=== PATIENT | female | born 1970 | race Caucasian/White ===

== ENCOUNTER 2018-11-11 16:32 | Inpatient (IN) ==
[2018-11-11] MEDS ORDERED: MetroNIDAZOLE 500 MG/100 ML 500 MG/100 ML BAG IVPB ONE (16:44)
[2018-11-11] MEDS ORDERED: cefTRIAXone 1,000 MG in Water for inj. (sterile) 20 ML 10 ML IVP ONE (16:46)
[2018-11-11 17:15] LABS: Basophils % 0.2 %; Eosinophils % 0.2 %; Hematocrit 40.4 % (35.3-44.9); Hemoglobin 12.9 g/dL (11.5-15.4); Immature Granulocytes % 0.4 % (0-4); Lymphocytes # 2.4 K/mcL (0.6-4.6); Lymphocytes % 12.6 %; Mean Corpuscular HGB Conc 31.9 g/dL (31.6-35.5); Mean Corpuscular Hemoglobin 28.1 pg (28.0-33.3); Mean Platelet Volume 11.8 fL (9.4-12.4); Monocytes # 1.3 K/mcL (0.0-1.3); Monocytes % 7.1 %; Neutrophils # 14.8 K/mcL (1.6-8.9); Platelet Count 254 K/mcL (140-400); Red Blood Count 4.59 M/mcL (3.82-4.97); Red Cell Distribution Width 17.2 % (11.5-14.5); Segmented Neutrophils % 79.5 %
[2018-11-11 17:22] LABS: INR 1.2; Prothrombin Time 13.8 Seconds (9.4-12.1)
[2018-11-11] MEDS ORDERED: 0.9 % Sodium Chloride 1,000 ML IVC ONE (17:22)
--- NOTE | 2018-11-11 17:22 | Acute Care Surgery H&P ---
<Kinjal Leary N - Last Filed: 11/11/18 17:39> Date of Encounter: 11/11/18 Time of Encounter: 17:21 Assessment and Plan (1) Abdominal pain Current Visit: Yes Status: Acute 48-year-old female with one-day history of right lower quadrant abdominal pain with CT oral contrast findings concerning for inflammatory changes along the terminal ileum and appendix. Differential includes, but is not limited to, appendicitis vs inflammatory bowel disease vs terminal ileitis. Patient has leukocytosis with borderline tachycardia, but is otherwise hemodynamically stable. Abdomen is tender to palpation in the right lower quadrant with involuntary guarding present. We will admit the patient to the acute care surgery service Due to significant inflammatory changes without a confirmatory etiology will hold off on surgery at this time Will treat with IV antibiotics with Rocephin and Flagyl Will reobtain CT abdomen and pelvis in 3 days and reevaluate the patient Pending response to conservative management may perform colonoscopy vs. outpatient appendectomy in the future Qualifiers: Abdominal location: right lower quadrant Qualified Code(s): R10.31 - Right lower quadrant pain (2) Sepsis Current Visit: Yes Status: Acute Borderline tachycardia with leukocytosis and inflammatory changes on CT scan bolused 1 L fluids Treated with Rocephin and Flagyl in the emergency department Ordered blood cultures Monitor vitals every 4 hours Continue Rocephin and Flagyl daily Qualifiers: Sepsis type: sepsis due to unspecified organism Qualified Code(s): A41.9 - Sepsis, unspecified organism (3) DVT prophylaxis Current Visit: Yes Status: Acute Heparin 5000 units every 8 hours History of Present Illness Chief complaint: abdominal pain HPI: Ms. Morejon is a 48 year old female who presented to the emergency department today after outpatient CT findings concerning for terminal ileitis versus appendicitis. Patient states that she developed right lower quadrant abdominal pain yesterday at approximately 1 PM. She visited a physician the same day and a CT with oral contrast was ordered. CT findings are significant for inflamma tory changes involving the appendix and terminal ileum, with a differential including acute appendicitis versus IBD. Patient is currently resting comfortably in bed, she is in no acute distress and not actively nauseous and vomiting. She has abdominal tenderness with involuntary guarding of the right lower quadrant. Denies any hematochezia or melena. Denies any fevers chills. Past Med Surg Social Fam HX - Past Medical History Medical history: no medical history Psychiatric history: no psych history - Social History Smoking Status: Current every day smoker Smokeless Tobacco Status: No Alcohol use: none Drug use: none Medications and Allergies No Known Home Drugs 11/11/18 [History] Allergy/AdvReac Type Severity Reaction Status Date / Time Penicillins Allergy Rash Verified 11/11/18 16:42 Sulfa (Sulfonamide Allergy Rash Verified 11/11/18 16:42 Antibiotics) Review of Systems All systems PM: The remainder of the systems were reviewed and are negative - Constitutional no chills, no fever(s) - Cardiovascular no chest pain - Respiratory no dyspnea - Gastrointestinal abdominal pain, diarrhea, no hematochezia, no melena, no nausea, no vomiting - Genitourinary Genitourinary: no dysuria - Integumentary no rash General Surgery Exam Initial Vital Signs Temp Pulse Resp BP Pulse Ox 99.0 F 94 18 136/86 100 11/11/18 16:34 11/11/18 16:34 11/11/18 16:34 11/11/18 16:34 11/11/18 16:34 - General physical appearance well developed, well nourished - Eyes PERRL, normal ocular movement - ENT normal pinna, normal nares - Neck trachea midline, no venous distension - Respiratory normal expansion, normal respiratory effort, clear to auscultation - Cardiovascular Cardiovascular exam: Present: RRR. Absent: murmurs - Abdomen Abdomen general surgery: Present: bowel sounds present, tender, guarding Abdominal Tenderness: Present: RLQ - Integumentary Integumentary general surgery: Present: warm and dry - Musculoskeletal Present: normal posture - Psychiatric Psychiatric general surgery: Present: A&Ox3 Results - Labs 11/11/18 16:45 11/11/18 16:45 Abnormal lab results WBC 18.7 K/mcL (4.3-11.1) H 11/11/18 16:45 RDW 17.2 % (11.5-14.5) H 11/11/18 16:45 14.8 K/mcL (1.6-8.9) H 11/11/18 16:45 All other labs normal. <Venkatesh Rivera - Last Filed: 11/12/18 06:34> Date of Encounter: 11/11/18 History of Present Illness HPI: Ms. Morejon is a 48 year old female Review of Systems All systems PM: The remainder of the systems were reviewed and are negative General Surgery Exam Initial Vital Signs Temp Pulse Resp BP Pulse Ox 99.0 F 94 18 136/86 100 11/11/18 16:34 11/11/18 16:34 11/11/18 16:34 11/11/18 16:34 11/11/18 16:34 Results - Labs 11/11/18 16:45 11/11/18 16:45 Abnormal lab results WBC 18.7 K/mcL (4.3-11.1) H 11/11/18 16:45 RDW 17.2 % (11.5-14.5) H 11/11/18 16:45 14.8 K/mcL (1.6-8.9) H 11/11/18 16:45 PT 13.8 Seconds (9.4-12.1) H 11/11/18 16:45 Potassium 3.4 mEq/L (3.5-5.1) L 11/11/18 16:45 AST 10 Units/L (13-39) L 11/11/18 16:45 40 mg/dL (Negative) H 11/11/18 20:43 Trace (Negative) H 11/11/18 20:43 Ur Squamous Epith Cells Moderate per lpf (None-Few) H 11/11/18 20:43 Diabetes panel 11/11/18 Range/Units 16:45 Sodium 137 (136-145) mEq/L Potassium 3.4 L (3.5-5.1) mEq/L Chloride 107 (98-107) mEq/L Carbon Dioxide 23 (23-29) mEq/L BUN 8 (6-20) mg/dL Creatinine 0.69 (0.60-1.20) mg/dL Glucose 91 (70-105) mg/dL Calcium 9.0 (8.6-10.3) mg/dL AST 10 L (13-39) Units/L ALT 10 (7-52) Units/L Alkaline Phosphatase 58 (34-104) Units/L Albumin 4.1 (3.5-5.7) g/dL Calcium panel 11/11/18 Range/Units 16:45 Calcium 9.0 (8.6-10.3) mg/dL Albumin 4.1 (3.5-5.7) g/dL Pituitary panel 11/11/18 Range/Units 16:45 Sodium 137 (136-145) mEq/L Potassium 3.4 L (3.5-5.1) mEq/L Chloride 107 (98-107) mEq/L Carbon Dioxide 23 (23-29) mEq/L BUN 8 (6-20) mg/dL Creatinine 0.69 (0.60-1.20) mg/dL Glucose 91 (70-105) mg/dL Calcium 9.0 (8.6-10.3) mg/dL Adrenal panel 11/11/18 Range/Units 16:45 Sodium 137 (136-145) mEq/L Potassium 3.4 L (3.5-5.1) mEq/L Chloride 107 (98-107) mEq/L Carbon Dioxide 23 (23-29) mEq/L BUN 8 (6-20) mg/dL Creatinine 0.69 (0.60-1.20) mg/dL Glucose 91 (70-105) mg/dL Calcium 9.0 (8.6-10.3) mg/dL Total Bilirubin 0.7 (0.3-1.0) mg/dL AST 10 L (13-39) Units/L ALT 10 (7-52) Units/L Alkaline Phosphatase 58 (34-104) Units/L Albumin 4.1 (3.5-5.7) g/dL All other labs normal. - Attending Attestation I examined this patient and my medical decision-making was reviewed with the Resident Physician. I agree with the documented findings, disposition and treatment plan as described except to the extent set forth below. The patient is seen and evaluated in the emergency department with the resident. I personally reviewed the CAT scan of the abdomen. She has a phlegmon in the right lower quadrant. This is unclear etiology. This may represent distal small bowel inflammatory bowel disease or prolonged inflammation of the appendix. We have decided to proceed with broad-spectrum antibiotic therapy instead of surgery at this time. Hopefully this will minimize future surgical intervention. Venkatesh Rivera MD FACS
[2018-11-11] MEDS ORDERED: Naloxone 0.4 MG/ML INJ IVP PRN (17:24)
[2018-11-11] MEDS ORDERED: Ondansetron ODT 4 MG TAB.RAPDIS SL PRN (17:24)
[2018-11-11] MEDS ORDERED: Acetaminophen 325 MG TABLET PO PRN (17:24)
[2018-11-11 17:31] LABS: BUN/Creatinine Ratio 12 (6-26); Blood Urea Nitrogen 8 mg/dL (6-20); Carbon Dioxide 23 mEq/L (23-29); Chloride 107 mEq/L (98-107); Glucose 91 mg/dL (70-105); Osmolality,Calculated 282 (280-300); Potassium 3.4 mEq/L (3.5-5.1); Sodium 137 mEq/L (136-145); eGFR For Non-African Americans > 60 (> 60)
--- NOTE | 2018-11-11 17:33 | Emergency Department Note ---
Disposition Clinical Impression: Acute appendicitis Qualifiers: Acute appendicitis type: other Qualified Code(s): K35.890 - Other acute appendicitis without perforation or gangrene; K35.89 - Other acute appendicitis Disposition: Admitted As Inpatient Condition: Undetermined Time of Disposition: 21:17 Abdominal Pain HPI - General Chief Complaint: ED Abdominal Pain Stated Complaint: "Appendicitis" Time Seen by Provider: 11/11/18 16:34 Source: patient, family Mode of arrival: ambulatory Limitations: no limitations Nursing Notes Reviewed: Yes Vital Signs Reviewed: Yes - History of Present Illness HPI Narrative: 48-year-old female with no significant past medical history presenting for 2 days of right lower quadrant abdominal pain. Patient states she woke up yesterday morning with severe right lower quadrant abdominal pain was seen by her family care nurse practitioner who ordered outpatient CT scan. Patient was unable to acquire CT scan yesterday and came in today for study. Study showed concern for appendicitis. Patient sent to the ED. Patient currently complains of 5 out of 10 right lower quadrant pain without radiation, it is sharp and stabbing in nature. Patient states the pain is relieved with rest and exacerbated by movement and walking. Patient states she is on no medications at this point has no known drug allergies, although penicillins and sulfa drugs are listed as allergies in her chart. Patient has no other concerns or complaints at this time. Pt Subjective Complaint: abdominal pain Onset (ago): day(s) Consistency: constant, Worsening Location: RLQ Pain Severity: severe Pain Scale: 8 Quality: stabbing, sharp Radiation: none Migration to: no migration Improves with: rest Worsens with: movement Associated symptoms: Reports: denies other symptoms Treatments prior to arrival: none - Related Data Home Medications Medication Instructions Recorded Confirmed No Known Home Drugs 11/11/18 11/11/18 Allergies Allergy/AdvReac Type Severity Reaction Status Date / Time Penicillins Allergy Rash Verified 11/11/18 16:42 Sulfa (Sulfonamide Allergy Rash Verified 11/11/18 16:42 Antibiotics) Review of Systems: Constitutional: Denies: fever, chills Cardiovascular: Denies: chest pain Respiratory: Denies: dyspnea Gastrointestinal: Patient admits to severe right lower quadrant abdominal pain, currently 5 out of 10 on the pain scale sharp and stabbing in nature and exacerb ated with movement and walking. Denies: nausea, vomiting, diarrhea, constipation, hematemesis, melena, hematochezia Genitourinary: Denies: hematuria Musculoskeletal: Denies: back pain, neck pain Integumentary: Denies: rash Neurological: Denies: headache, weakness, numbness, paresthesias All systems ED: reviewed and negative except as stated. Review of Systems: As Per HPI Abdominal Pain PMH - Past Medical History Medical history: Reports: no medical history Female Surgical History: Reports: , cholecystectomy Psychiatric history: Reports: no psych history - Social History Smoking status: Current every day smoker Alcohol use: Reports: none Drug use: Reports: none Physical Exam Constitutional: No acute distress, [id number], engaged to conversation, speech is fluid, answers questions appropriately Neuro: GCS 15, no overt focal neurological deficits Head: Atraumatic, normocephalic Eyes: Pupils equal, round and reactive to light, no scleral icterus, no conjunctival injection Mouth: No lip swelling, perioral cyanosis, drooling, or trismus. Neck: Trachea midline without deviation. Anterior neck is supple without swelling, no overt thyromegaly noted. Chest: Symmetric chest wall rise Heart: Cardiac rhythm and rate are regular with S1 and S2 , no S3 or S4 appreciated, no murmurs, rubs, or clicks. Lungs: Lungs are clear to auscultation bilaterally, without accessory muscle use or prolonged expiratory phase. No wheezes, rhonchi, rales or stridor appreciated. *Abdomen: Exquisite tenderness noted in the right lower quadrant at McBurney's point. Obturator sign positive, heeltap sign positive. Abdomen is otherwise flat, soft to palpation, normal bowel sounds, no evidence of bruising, surgical incisions, or abnormal mass. No abdominal bruit auscultated. Non-distended, non-rigid, no organomegaly, no ascites appreciated. No pulsatile mass, no guarding to palpation in all four quadrants, no rebound Extremities: No evidence of pedal edema, joint swelling or erythema. Pulses/motor intact in all 4 extremities. Back exam: No CVA tenderness. Psychiatric exam: Patient displays a normal affect and mood for the environment. No overt signs of hallucination. Integumentary: warm, dry, intact, normal color. No rash, cyanosis, diaphoresis, erythema, or pallor - General Limitations: no limitations General appearance: alert, in no apparent distress Course Course Narrative: Presurgical labs, CBC, BMP, coags, urinalysis, type and screen We will consult surgical services at this time. Vital Signs Temperature 99.0 F 11/11/18 16:34 Pulse Rate 94 11/11/18 16:34 Respiratory Rate 18 11/11/18 16:34 Blood Pressure 136/86 11/11/18 16:34 O2 Sat by Pulse Oximetry 100 11/11/18 16:34 Temperature 98.4 F 11/11/18 21:12 Pulse Rate 100 11/11/18 21:12 Respiratory Rate 16 11/11/18 21:12 Blood Pressure 121/70 11/11/18 21:12 O2 Sat by Pulse Oximetry 94 11/11/18 21:12 Oxygen Delivery Oxygen Delivery Room Air Abdominal Pain - MDM Narrative Medical decision making narrative: Patient CT scan shows concern for appendicitis versus inflammatory changes from Crohn's disease Patient does have elevated white blood count EKG laboratory results otherwise unremarkable Patient admitted to surgical medicine service for further evaluation and management. Patient verbalizes understanding and agreement with this plan. - Lab Data Lab results reviewed: Yes I reviewed the patient's lab results. Result diagrams: 11/11/18 16:45 11/11/18 16:45 Lab Results 11/11/18 11/11/18 11/11/18 Range/Units 16:45 16:45 16:45 WBC 18.7 H (4.3-11.1) K/mcL RBC 4.59 (3.82-4.97) M/mcL Hgb 12.9 (11.5-15.4) g/dL Hct 40.4 (35.3-44.9) % MCV 88.0 (83.0-100.0) fL MCH 28.1 (28.0-33.3) pg MCHC 31.9 (31.6-35.5) g/dL RDW 17.2 H (11.5-14.5) % Plt Count 254 (140-400) K/mcL MPV 11.8 (9.4-12.4) fL Immature Gran % 0.4 (0-4) % Seg Neutrophils % 79.5 % Lymphocytes % 12.6 % Monocytes % 7.1 % Eosinophils % 0.2 % Basophils % 0.2 % Neutrophils # 14.8 H (1.6-8.9) K/mcL Lymphocytes # 2.4 (0.6-4.6) K/mcL Monocytes # 1.3 (0.0-1.3) K/mcL Eosinophils # 0.0 (0.0-0.6) K/mcL Basophils # 0.0 (0.0-0.2) K/mcL PT 13.8 H (9.4-12.1) Seconds INR 1.2 Sodium 137 (136-145) mEq/L Potassium 3.4 L (3.5-5.1) mEq/L Chloride 107 (98-107) mEq/L Carbon Dioxide 23 (23-29) mEq/L BUN 8 (6-20) mg/dL Creatinine 0.69 (0.60-1.20) mg/dL Est GFR ( Amer) > 60 (> 60) Est GFR (Non-Af Amer) > 60 (> 60) BUN/Creatinine Ratio 12 (6-26) Glucose 91 (70-105) mg/dL Calculated Osmolality 282 (280-300) Lactic Acid (0.5-2.2) mmol/L Calcium 9.0 (8.6-10.3) mg/dL Total Bilirubin 0.7 (0.3-1.0) mg/dL Direct Bilirubin 0.1 (0.0-0.2) mg/dL Indirect Bilirubin 0.6 (0.0-1.2) mg/dL AST 10 L (13-39) Units/L ALT 10 (7-52) Units/L Alkaline Phosphatase 58 (34-104) Units/L Serum Total Protein 7.3 (6.4-8.9) g/dL Albumin 4.1 (3.5-5.7) g/dL Globulin 3.2 (2.4-3.5) g/dL Albumin/Globulin Ratio 1.3 (1.1-2.2) Blood Type Antibody Screen 11/11/18 11/11/18 Range/Units 16:45 17:37 WBC (4.3-11.1) K/mcL RBC (3.82-4.97) M/mcL Hgb (11.5-15.4) g/dL Hct (35.3-44.9) % MCV (83.0-100.0) fL MCH (28.0-33.3) pg MCHC (31.6-35.5) g/dL RDW (11.5-14.5) % Plt Count (140-400) K/mcL MPV (9.4-12.4) fL Immature Gran % (0-4) % Seg Neutrophils % % Lymphocytes % % Monocytes % % Eosinophils % % Basophils % % Neutrophils # (1.6-8.9) K/mcL Lymphocytes # (0.6-4.6) K/mcL Monocytes # (0.0-1.3) K/mcL Eosinophils # (0.0-0.6) K/mcL Basophils # (0.0-0.2) K/mcL PT (9.4-12.1) Seconds INR Sodium (136-145) mEq/L Potassium (3.5-5.1) mEq/L Chloride (98-107) mEq/L Carbon Dioxide (23-29) mEq/L BUN (6-20) mg/dL Creatinine (0.60-1.20) mg/dL Est GFR ( Amer) (> 60) Est GFR (Non-Af Amer) (> 60) BUN/Creatinine Ratio (6-26) Glucose (70-105) mg/dL Calculated Osmolality (280-300) Lactic Acid 0.6 (0.5-2.2) mmol/L Calcium (8.6-10.3) mg/dL Total Bilirubin (0.3-1.0) mg/dL Direct Bilirubin (0.0-0.2) mg/dL Indirect Bilirubin (0.0-1.2) mg/dL AST (13-39) Units/L ALT (7-52) Units/L Alkaline Phosphatase (34-104) Units/L Serum Total Protein (6.4-8.9) g/dL Albumin (3.5-5.7) g/dL Globulin (2.4-3.5) g/dL Albumin/Globulin Ratio (1.1-2.2) Blood Type A POSITIVE Antibody Screen NEGATIVE - Radiology Data Radiology results reviewed: Yes I reviewed the patient's radiology results. - EKG Data EKG attestation: Yes I reviewed and interpreted this EKG. EKG results narrative: Patient EKG shows sinus rhythm with a heart rate of 93 bpm, NJ interval of 156 ms, QR episcopalian of 84 ms, QT/QTc interval 359/447 ms respectively. There are no significant ST segment elevations, depressions, pathologic Q waves, abnormal T-wave inversions, nor any other signs of acute ischemic change. At this time there is no prior EKG available for comparison. Attestation Statement - Attestation Attestation: I, Estevan Dubon, examined this patient and my medical decision-making was reviewed with the [employer]/PA/Advanced Practice Nurse/Resident Physician. I agree with the documented findings, disposition and treatment plan as described except to the extent set forth below. 48-year-old female presents emergency Department with concerns of abdominal pain. Patient states the right lower abdomen that has been painful for the past 24-48 hours. Recent trauma. No vaginal bleeding or vaginal discharge. Denies hematochezia or melena. Denies a family history or personal history of Crohn's disease or ulcerative colitis. Patient was sent to the emergency department from the CT scan. General surgeon was counseled that and evaluated the patient bedside. Patient will be admitted to the general surgeon.
[2018-11-11] MEDS ORDERED: Nicotine 21 MG PATCH.TD24 TD PRN (17:38)
[2018-11-11 17:43] LABS: Alanine Aminotransferase 10 Units/L (7-52); Albumin 4.1 g/dL (3.5-5.7); Albumin/Globulin Ratio 1.3 (1.1-2.2); Alkaline Phosphatase 58 Units/L (34-104); Aspartate Amino Transferase 10 Units/L (13-39); Bilirubin,Direct 0.1 mg/dL (0.0-0.2); Bilirubin,Indirect 0.6 mg/dL (0.0-1.2); Bilirubin,Total 0.7 mg/dL (0.3-1.0); Globulin 3.2 g/dL (2.4-3.5); Total Protein 7.3 g/dL (6.4-8.9)
[2018-11-11 20:55] LABS: Bilirubin,Urine Negative (Negative); Blood,Urine Trace (Negative); Clarity,Urine Clear (Clear); Color,Urine Yellow (Yellow); Glucose,Urine (UA) Normal (Normal); Ketones,Urine 40 mg/dL (Negative); Leukocyte Esterase,Urine Negative (Negative); Nitrite,Urine Negative (Negative); Protein,Urine Negative (Neg-Trace); Urobilinogen,Urine Normal (Normal)
[2018-11-11 20:57] LABS: Bacteria,Urine None Seen per hpf (None-Few); Hyaline Casts,Urine None Seen per lpf (None-Few); RBC,Urine 0-3 per hpf (0-3); Squamous Epithelial Cell,Urine Moderate per lpf (None-Few); WBC,Urine 0-3 per hpf (0-3)
[2018-11-12] MEDS: MetroNIDAZOLE 500 MG/100 ML 500 MG/100 ML BAG IVPB SCH ×3 (01:28→15:37)
[2018-11-12] MEDS: *HR* Heparin 5,000 UNIT/ML VIAL SQ SCH ×4 (01:37→22:10)
--- NOTE | 2018-11-12 08:01 | AcuteCareSurgery Progress Note ---
<Kinjal Leary N - Last Filed: 11/12/18 07:59> Date of Encounter: 11/12/18 Time of Encounter: 07:30 - Assessment and Plan (1) Abdominal pain Current Visit: Yes Status: Acute 48-year-old female with right lower quadrant abdominal pain and CT findings concerning for inflammatory changes along the terminal ileum and appendix. Differential includes, but is not limited to, appendicitis vs inflammatory bowel disease vs terminal ileitis. Patient had leukocytosis with borderline tachycardia on admission, but is otherwise hemodynamically stable. Abdomen is tender to palpation in the right lower quadrant with involuntary guarding present. Continue conservative management with IV Rocephin and Flagyl Will obtain repeat CT abdomen and pelvis in 3 days and reevaluate the patient Pending response to conservative management may perform colonoscopy vs. outpatient appendectomy in the future Qualifiers: Abdominal location: right lower quadrant Qualified Code(s): R10.31 - Right lower quadrant pain (2) Sepsis Current Visit: Yes Status: Acute Borderline tachycardia with leukocytosis and inflammatory changes on CT scan bolused 1 L fluids on admission Continue IV Rocephin and Flagyl Blood cultures no growth to date Qualifiers: Sepsis type: sepsis due to unspecified organism Qualified Code(s): A41.9 - Sepsis, unspecified organism (3) DVT prophylaxis Current Visit: Yes Status: Acute Heparin 5000 units every 8 hours Subjective Narrative: Patient seen and examined at bedside this morning. Reports slight improvement in her pain but continues to have involuntary guarding of the right lower quadrant. Tolerating her clear liquid diet. Objective Vital Signs - Last 8 Hours Temp Pulse Resp BP Pulse Ox 11/12/18 07:04 98.1 F 82 15 100/65 95 11/12/18 03:36 98.3 F 84 14 114/76 97 11/12/18 00:01 98.8 F 85 14 104/66 97 Intake and Output 11/11/18 11/11/18 11/12/18 15:59 23:59 07:59 Intake Total 1110 / 1110 680 / 680 Output Total 0 / 0 1900 / 1900 Balance 1110 / 1110 -1220 / -1220 Intake: IV Fluids 1110 / 1110 0.9 % Sodium Chloride 1,000 ML 1000 / 1000 @ 999 mls/hr IVC .Q1H1M [facility] Rx# :[id number] Rocephin 1,000 MG In Water for inj. (sterile) 10 ML @ 600 mls/ hr IVP ONCE [facility] Rx#:[id number] Flagyl Premix 500 MG/100 ML 500 100 / 100 mg In 100 ml @ 100 mls/hr IVPB [facility] Rx#:[id number] Oral 0 / 0 680 / 680 Output: Urine 0 / 0 1900 / 1900 Other: Stool Characteristics Normal for Patient Weight 95.1 kg 95.1 kg Patient Weight 11/12/18 23:59 Weight 95.1 kg - General physical appearance well developed, well nourished - Eyes PERRL - ENT normal pinna, normal nares - Neck Neck exam: trachea midline, no venous distension - Respiratory normal expansion, normal respiratory effort - Abdomen Abdomen: Present: bowel sounds present, tender Abdominal Tenderness: RLQ - Integumentary no rash - Labs 11/11/18 16:45 11/11/18 16:45 Diabetes panel 11/11/18 Range/Units 16:45 Sodium 137 (136-145) mEq/L Potassium 3.4 L (3.5-5.1) mEq/L Chloride 107 (98-107) mEq/L Carbon Dioxide 23 (23-29) mEq/L BUN 8 (6-20) mg/dL Creatinine 0.69 (0.60-1.20) mg/dL Glucose 91 (70-105) mg/dL Calcium 9.0 (8.6-10.3) mg/dL AST 10 L (13-39) Units/L ALT 10 (7-52) Units/L Alkaline Phosphatase 58 (34-104) Units/L Albumin 4.1 (3.5-5.7) g/dL Calcium panel 11/11/18 Range/Units 16:45 Calcium 9.0 (8.6-10.3) mg/dL Albumin 4.1 (3.5-5.7) g/dL Pituitary panel 11/11/18 Range/Units 16:45 Sodium 137 (136-145) mEq/L Potassium 3.4 L (3.5-5.1) mEq/L Chloride 107 (98-107) mEq/L Carbon Dioxide 23 (23-29) mEq/L BUN 8 (6-20) mg/dL Creatinine 0.69 (0.60-1.20) mg/dL Glucose 91 (70-105) mg/dL Calcium 9.0 (8.6-10.3) mg/dL Adrenal panel 11/11/18 Range/Units 16:45 Sodium 137 (136-145) mEq/L Potassium 3.4 L (3.5-5.1) mEq/L Chloride 107 (98-107) mEq/L Carbon Dioxide 23 (23-29) mEq/L BUN 8 (6-20) mg/dL Creatinine 0.69 (0.60-1.20) mg/dL Glucose 91 (70-105) mg/dL Calcium 9.0 (8.6-10.3) mg/dL Total Bilirubin 0.7 (0.3-1.0) mg/dL AST 10 L (13-39) Units/L ALT 10 (7-52) Units/L Alkaline Phosphatase 58 (34-104) Units/L Albumin 4.1 (3.5-5.7) g/dL Consult Discharge Plan - Plan Referrals: NONE,PCP [Primary Care Provider] - <Mendez Winters - Last Filed: 11/12/18 11:28> Date of Encounter: 11/12/18 Objective Vital Signs - Last 8 Hours Temp Pulse Resp BP Pulse Ox 11/12/18 10:20 98.2 F 76 15 104/68 96 11/12/18 07:04 98.1 F 82 15 100/65 95 11/12/18 03:36 98.3 F 84 14 114/76 97 Intake and Output 11/11/18 11/12/18 11/12/18 23:59 07:59 15:59 Intake Total 1110 / 1110 780 / 1140 360 / 1140 Output Total 0 / 0 1900 / 1900 0 / 1900 Balance 1110 / 1110 -1120 / -760 360 / -760 Intake: IV Fluids 1110 / 1110 100 / 100 0.9 % Sodium Chloride 1,000 ML 1000 / 1000 @ 999 mls/hr IVC .Q1H1M [facility] Rx# :[id number] Rocephin 1,000 MG In Water for 10 / 10 inj. (sterile) 10 ML @ 600 mls/ hr IVP ONCE [facility] Rx#:[id number] Flagyl Premix 500 MG/100 ML 500 100 / 100 100 / 100 mg In 100 ml @ 100 mls/hr IVPB Q8HR [facility] Rx#:[id number] Oral 0 / 0 680 / 1040 360 / 1040 Output: Urine 0 / 0 1900 / 1900 0 / 1900 Other: Meal BREAKFAST CLEARS Stool Characteristics Normal for Patient Weight 95.1 kg 95.1 kg Patient Weight 11/12/18 23:59 Weight 95.1 kg - Labs 11/12/18 10:36 11/12/18 10:36 Diabetes panel 11/11/18 11/12/18 Range/Units 16:45 10:36 Sodium 137 138 (136-145) mEq/L Potassium 3.4 L 3.9 (3.5-5.1) mEq/L Chloride 107 108 H (98-107) mEq/L Carbon Dioxide 23 24 (23-29) mEq/L BUN 8 5 L (6-20) mg/dL Creatinine 0.69 0.57 L (0.60-1.20) mg/dL Glucose 91 102 (70-105) mg/dL Calcium 9.0 8.6 (8.6-10.3) mg/dL AST 10 L 8 L (13-39) Units/L ALT 10 8 (7-52) Units/L Alkaline Phosphatase 58 49 (34-104) Units/L Albumin 4.1 3.8 (3.5-5.7) g/dL Calcium panel 11/11/18 11/12/18 Range/Units 16:45 10:36 Calcium 9.0 8.6 (8.6-10.3) mg/dL Phosphorus 2.1 L (2.7-4.5) mg/dL Albumin 4.1 3.8 (3.5-5.7) g/dL Pituitary panel 11/11/18 11/12/18 Range/Units 16:45 10:36 Sodium 137 138 (136-145) mEq/L Potassium 3.4 L 3.9 (3.5-5.1) mEq/L Chloride 107 108 H (98-107) mEq/L Carbon Dioxide 23 24 (23-29) mEq/L BUN 8 5 L (6-20) mg/dL Creatinine 0.69 0.57 L (0.60-1.20) mg/dL Glucose 91 102 (70-105) mg/dL Calcium 9.0 8.6 (8.6-10.3) mg/dL Adrenal panel 11/11/18 11/12/18 Range/Units 16:45 10:36 Sodium 137 138 (136-145) mEq/L Potassium 3.4 L 3.9 (3.5-5.1) mEq/L Chloride 107 108 H (98-107) mEq/L Carbon Dioxide 23 24 (23-29) mEq/L BUN 8 5 L (6-20) mg/dL Creatinine 0.69 0.57 L (0.60-1.20) mg/dL Glucose 91 102 (70-105) mg/dL Calcium 9.0 8.6 (8.6-10.3) mg/dL Total Bilirubin 0.7 0.6 (0.3-1.0) mg/dL AST 10 L 8 L (13-39) Units/L ALT 10 8 (7-52) Units/L Alkaline Phosphatase 58 49 (34-104) Units/L Albumin 4.1 3.8 (3.5-5.7) g/dL - Attending Attestation patient seen and examined. i have reviewed all pertinent pertinent labs, imaging, and notes. i have discussed the case in detail with the resident. i agree with the above assessment and plan and wish to add the following... 48F with phlegmonous mass, concerning for possible terminal ileitis vs acute ap pendicitis with surrounding inflammatory response; cont IV abx bowel rest activity as tolerated serial exam possible new CT in the next 24-48hers
[2018-11-12 10:50] LABS: Basophils # 0.1 K/mcL (0.0-0.2); Basophils % 0.5 %; Eosinophils # 0.1 K/mcL (0.0-0.6); Eosinophils % 0.5 %; Hematocrit 35.7 % (35.3-44.9); Hemoglobin 11.4 g/dL (11.5-15.4); Immature Granulocytes % 0.3 % (0-4); Lymphocytes # 2.2 K/mcL (0.6-4.6); Lymphocytes % 16.6 %; Mean Corpuscular HGB Conc 31.9 g/dL (31.6-35.5); Mean Corpuscular Hemoglobin 28.3 pg (28.0-33.3); Mean Corpuscular Volume 88.6 fL (83.0-100.0); Mean Platelet Volume 11.9 fL (9.4-12.4); Neutrophils # 9.6 K/mcL (1.6-8.9); Platelet Count 224 K/mcL (140-400); Red Blood Count 4.03 M/mcL (3.82-4.97); Red Cell Distribution Width 17.2 % (11.5-14.5); Segmented Neutrophils % 74.1 %
[2018-11-12 11:08] LABS: Alanine Aminotransferase 8 Units/L (7-52); Albumin 3.8 g/dL (3.5-5.7); Albumin/Globulin Ratio 1.5 (1.1-2.2); Alkaline Phosphatase 49 Units/L (34-104); Aspartate Amino Transferase 8 Units/L (13-39); BUN/Creatinine Ratio 9 (6-26); Bilirubin,Total 0.6 mg/dL (0.3-1.0); Blood Urea Nitrogen 5 mg/dL (6-20); Calcium 8.6 mg/dL (8.6-10.3); Carbon Dioxide 24 mEq/L (23-29); Chloride 108 mEq/L (98-107); Globulin 2.5 g/dL (2.4-3.5); Glucose 102 mg/dL (70-105); Osmolality,Calculated 283 (280-300); Phosphorous 2.1 mg/dL (2.7-4.5); Potassium 3.9 mEq/L (3.5-5.1); Sodium 138 mEq/L (136-145); Total Protein 6.3 g/dL (6.4-8.9); eGFR For Non-African Americans > 60 (> 60)
[2018-11-12] MEDS: cefTRIAXone 1,000 MG in Water for inj. (sterile) 20 ML 10 ML IVP SCH (15:36)
[2018-11-13] MEDS: MetroNIDAZOLE 500 MG/100 ML 500 MG/100 ML BAG IVPB SCH ×3 (00:23→16:13)
[2018-11-13] MEDS: *HR* Heparin 5,000 UNIT/ML VIAL SQ SCH ×3 (06:07→21:45)
[2018-11-13] MEDS ORDERED: Isovue-370 500 ML BOTTLE IVP ONE (08:47)
--- NOTE | 2018-11-13 08:57 | AcuteCareSurgery Progress Note ---
<Jenni Stephens - Last Filed: 11/13/18 08:53> Date of Encounter: 11/13/18 Time of Encounter: 07:45 - Assessment and Plan (1) Abdominal pain Current Visit: Yes Status: Acute Pt states abdominal pain has resolved. Her exam is negative. Her white blood cell count is down trending and she is afebrile. We recommended repeat CAT scan in the morning to evaluate for progression of previously noted phlegmon. Regular diet for today. Surgery will continue to follow. Continue IV antibiotics. AM labs Qualifiers: Abdominal location: right lower quadrant Qualified Code(s): R10.31 - Right lower quadrant pain (2) Hypophosphatemia Current Visit: Yes Status: Acute Replace phos Recheck labs in am Subjective Patient reports: no new complaints, feels better, pain is less, tolerating liquids well, voiding w/o difficulty, flatus, bowel movement, afebrile Objective Vital Signs - Last 8 Hours Temp Pulse Resp BP Pulse Ox 11/13/18 04:00 98.7 F 77 16 96/61 95 Intake and Output 11/12/18 11/13/18 11/13/18 23:59 07:59 15:59 Intake Total 820 / 2070 400 / 400 Output Total 300 / 2600 1100 / 1100 Balance 520 / -530 -700 / -700 Intake: IV Fluids 100 / 310 100 / 100 Flagyl Premix 500 MG/100 ML 500 100 / 300 100 / 100 mg In 100 ml @ 100 mls/hr IVPB Q8HR [facility] Rx#:[id number] Oral 720 / 1760 300 / 300 Output: Urine 300 / 2600 1100 / 1100 Other: Meal Dinner Percent of Meal Consumed 100% Weight 95 kg Patient Weight 11/13/18 23:59 Weight 95 kg - General physical appearance no distress - ENT atraumatic, normocephalic - Neck Neck exam: trachea midline - Respiratory normal expansion, normal respiratory effort, clear to auscultation - Cardiovascular Cardiovascular exam: Present: RRR - Abdomen Abdomen: Present: bowel sounds present, soft, non tender - Integumentary no rash - Neurologic normal coordination, normal sensation - Musculoskeletal normal gait, normal posture - Psychiatric oriented to time, oriented to person, oriented to place, speech is normal, memory intact - Labs 11/12/18 10:36 11/12/18 10:36 Diabetes panel 11/12/18 Range/Units 10:36 Sodium 138 (136-145) mEq/L Potassium 3.9 (3.5-5.1) mEq/L Chloride 108 H (98-107) mEq/L Carbon Dioxide 24 (23-29) mEq/L BUN 5 L (6-20) mg/dL Creatinine 0.57 L (0.60-1.20) mg/dL Glucose 102 (70-105) mg/dL Calcium 8.6 (8.6-10.3) mg/dL AST 8 L (13-39) Units/L ALT 8 (7-52) Units/L Alkaline Phosphatase 49 (34-104) Units/L Albumin 3.8 (3.5-5.7) g/dL Calcium panel 11/12/18 Range/Units 10:36 Calcium 8.6 (8.6-10.3) mg/dL Phosphorus 2.1 L (2.7-4.5) mg/dL Albumin 3.8 (3.5-5.7) g/dL Pituitary panel 11/12/18 Range/Units 10:36 Sodium 138 (136-145) mEq/L Potassium 3.9 (3.5-5.1) mEq/L Chloride 108 H (98-107) mEq/L Carbon Dioxide 24 (23-29) mEq/L BUN 5 L (6-20) mg/dL Creatinine 0.57 L (0.60-1.20) mg/dL Glucose 102 (70-105) mg/dL Calcium 8.6 (8.6-10.3) mg/dL Adrenal panel 11/12/18 Range/Units 10:36 Sodium 138 (136-145) mEq/L Potassium 3.9 (3.5-5.1) mEq/L Chloride 108 H (98-107) mEq/L Carbon Dioxide 24 (23-29) mEq/L BUN 5 L (6-20) mg/dL Creatinine 0.57 L (0.60-1.20) mg/dL Glucose 102 (70-105) mg/dL Calcium 8.6 (8.6-10.3) mg/dL Total Bilirubin 0.6 (0.3-1.0) mg/dL AST 8 L (13-39) Units/L ALT 8 (7-52) Units/L Alkaline Phosphatase 49 (34-104) Units/L Albumin 3.8 (3.5-5.7) g/dL Consult Discharge Plan - Plan Referrals: NONE,PCP [Primary Care Provider] - <Venkatesh Rivera - Last Filed: 11/13/18 13:39> Date of Encounter: 11/13/18 Objective Vital Signs - Last 8 Hours Temp Pulse Resp BP Pulse Ox 11/13/18 12:21 98.3 F 78 16 93/60 94 Intake and Output 11/12/18 11/13/18 11/13/18 23:59 07:59 15:59 Intake Total 820 / 2070 400 / 760 360 / 760 Output Total 300 / 2600 1100 / 1100 Balance 520 / -530 -700 / -340 360 / -340 Intake: IV Fluids 100 / 310 100 / 100 Flagyl Premix 500 MG/100 ML 500 100 / 300 100 / 100 mg In 100 ml @ 100 mls/hr IVPB Q8HR [facility] Rx#:[id number] Oral 720 / 1760 300 / 660 360 / 660 Output: Urine 300 / 2600 1100 / 1100 Other: Meal Dinner Breakfast Percent of Meal Consumed 100% 100% # Voids 1 Weight 95 kg Patient Weight 11/13/18 23:59 Weight 95 kg - Labs 11/13/18 08:07 11/13/18 08:07 Diabetes panel 11/13/18 Range/Units 08:07 Sodium 139 (136-145) mEq/L Potassium 3.8 (3.5-5.1) mEq/L Chloride 108 H (98-107) mEq/L Carbon Dioxide 24 (23-29) mEq/L BUN 6 (6-20) mg/dL Creatinine 0.64 (0.60-1.20) mg/dL Glucose 102 (70-105) mg/dL Calcium 8.6 (8.6-10.3) mg/dL Calcium panel 11/13/18 Range/Units 08:07 Calcium 8.6 (8.6-10.3) mg/dL Pituitary panel 11/13/18 Range/Units 08:07 Sodium 139 (136-145) mEq/L Potassium 3.8 (3.5-5.1) mEq/L Chloride 108 H (98-107) mEq/L Carbon Dioxide 24 (23-29) mEq/L BUN 6 (6-20) mg/dL Creatinine 0.64 (0.60-1.20) mg/dL Glucose 102 (70-105) mg/dL Calcium 8.6 (8.6-10.3) mg/dL Adrenal panel 11/13/18 Range/Units 08:07 Sodium 139 (136-145) mEq/L Potassium 3.8 (3.5-5.1) mEq/L Chloride 108 H (98-107) mEq/L Carbon Dioxide 24 (23-29) mEq/L BUN 6 (6-20) mg/dL Creatinine 0.64 (0.60-1.20) mg/dL Glucose 102 (70-105) mg/dL Calcium 8.6 (8.6-10.3) mg/dL - Attending Attestation I have personally performed a face to face evaluation on this patient. I have reviewed and agree with the care plan. History and Exam by me shows: The patient is seen and evaluated on morning rounds with the acute care surgery team. Her abdominal examination and white blood cell count continued to improve. We will continue IV antibiotics today. We will repeat the CAT scan with GI contrast tomorrow to see if there has been any progression with the phlegmon toward discrete abscess Venkatesh Rivera MD FACS
[2018-11-13 08:58] LABS: Basophils # 0.1 K/mcL (0.0-0.2); Basophils % 0.6 %; Eosinophils # 0.1 K/mcL (0.0-0.6); Eosinophils % 1.1 %; Hematocrit 37.6 % (35.3-44.9); Hemoglobin 11.8 g/dL (11.5-15.4); Immature Granulocytes % 0.3 % (0-4); Lymphocytes # 1.6 K/mcL (0.6-4.6); Mean Corpuscular HGB Conc 31.4 g/dL (31.6-35.5); Mean Corpuscular Hemoglobin 27.6 pg (28.0-33.3); Mean Corpuscular Volume 87.9 fL (83.0-100.0); Mean Platelet Volume 12.1 fL (9.4-12.4); Monocytes # 0.8 K/mcL (0.0-1.3); Monocytes % 6.8 %; Neutrophils # 9.7 K/mcL (1.6-8.9); Platelet Count 232 K/mcL (140-400); Red Blood Count 4.28 M/mcL (3.82-4.97); Segmented Neutrophils % 78.2 %
[2018-11-13 09:10] LABS: BUN/Creatinine Ratio 9 (6-26); Blood Urea Nitrogen 6 mg/dL (6-20); Calcium 8.6 mg/dL (8.6-10.3); Carbon Dioxide 24 mEq/L (23-29); Chloride 108 mEq/L (98-107); Glucose 102 mg/dL (70-105); Osmolality,Calculated 286 (280-300); Potassium 3.8 mEq/L (3.5-5.1); Sodium 139 mEq/L (136-145); eGFR For Non-African Americans > 60 (> 60)
[2018-11-13] MEDS: cefTRIAXone 1,000 MG in Water for inj. (sterile) 20 ML 10 ML IVP SCH (16:12)
--- NOTE | 2018-11-13 22:00 | Electrocardiograph Report ---
[employer] Instrument Test Date: 2018-11-11 Pat Name: Stella Morejon Department: EXAM21 Room: [facility] Gender: F Outbound Sales Consultant: : 1970 Requested By: Danny Trejo Order Number: [id number] Reading MD: Jonny Vincent Measurements Intervals [place] Rate: 93 P: 73 [place]: 156 QRS: 20 QRSD: 84 T: 54 QT: 359 QTc: 447 Interpretive Statements Sinus rhythm Electronically Signed On 11-13-2018 21:59:09 EDT by Jonny Vincent
[2018-11-14] MEDS: MetroNIDAZOLE 500 MG/100 ML 500 MG/100 ML BAG IVPB SCH ×2 (00:24→08:07)
[2018-11-14] MEDS: *HR* Heparin 5,000 UNIT/ML VIAL SQ SCH (06:15)
[2018-11-14 07:12] VITALS: BP 114/79
[2018-11-14 07:36] LABS: Basophils # 0.1 K/mcL (0.0-0.2); Basophils % 0.8 %; Eosinophils # 0.2 K/mcL (0.0-0.6); Eosinophils % 2.1 %; Hematocrit 36.6 % (35.3-44.9); Hemoglobin 11.5 g/dL (11.5-15.4); Immature Granulocytes % 0.3 % (0-4); Lymphocytes # 1.9 K/mcL (0.6-4.6); Lymphocytes % 19.8 %; Mean Corpuscular HGB Conc 31.4 g/dL (31.6-35.5); Mean Corpuscular Hemoglobin 27.8 pg (28.0-33.3); Mean Corpuscular Volume 88.4 fL (83.0-100.0); Mean Platelet Volume 12.5 fL (9.4-12.4); Monocytes # 0.8 K/mcL (0.0-1.3); Monocytes % 7.9 %; Neutrophils # 6.7 K/mcL (1.6-8.9); Platelet Count 222 K/mcL (140-400); Red Blood Count 4.14 M/mcL (3.82-4.97); Segmented Neutrophils % 69.1 %
[2018-11-14 08:25] LABS: BUN/Creatinine Ratio 17 (6-26); Blood Urea Nitrogen 12 mg/dL (6-20); Calcium 8.4 mg/dL (8.6-10.3); Carbon Dioxide 25 mEq/L (23-29); Chloride 111 mEq/L (98-107); Glucose 111 mg/dL (70-105); Osmolality,Calculated 292 (280-300); Sodium 141 mEq/L (136-145); eGFR For Non-African Americans > 60 (> 60)
--- NOTE | 2018-11-14 09:10 | AcuteCareSurgery Progress Note ---
Date of Encounter: 11/14/18 - Assessment and Plan (1) Abdominal pain Current Visit: Yes Status: Acute 48-year-old female with right lower quadrant abdominal pain and CT findings co ncerning for inflammatory changes along the terminal ileum and appendix. Differential includes, but is not limited to, appendicitis vs inflammatory bowel disease vs terminal ileitis. Patient had leukocytosis with borderline tachycardia on admission, but is otherwise hemodynamically stable. Abdomen is tender to palpation in the right lower quadrant with involuntary guarding present. Continue conservative management with IV Rocephin and Flagyl Will obtain repeat CT abdomen and pelvis in 3 days and reevaluate the patient Pending response to conservative management may perform colonoscopy vs. outpatient appendectomy in the future Qualifiers: Abdominal location: right lower quadrant Qualified Code(s): R10.31 - Right lower quadrant pain (2) Sepsis Current Visit: Yes Status: Acute Borderline tachycardia with leukocytosis and inflammatory changes on CT scan bolused 1 L fluids on admission Continue IV Rocephin and Flagyl Blood cultures no growth to date Qualifiers: Sepsis type: sepsis due to unspecified organism Qualified Code(s): A41.9 - Sepsis, unspecified organism (3) DVT prophylaxis Current Visit: Yes Status: Acute Heparin 5000 units every 8 hours Objective Vital Signs - Last 8 Hours Temp Pulse Resp BP Pulse Ox 11/14/18 07:11 98.2 F 78 17 114/79 93 11/14/18 04:19 98.2 F 77 14 101/64 96 Intake and Output 11/13/18 11/14/18 11/14/18 23:59 07:59 15:59 Intake Total 350 / 1330 100 / 100 Output Total 1200 / 2600 200 / 200 Balance -850 / -1270 -100 / -100 Intake: IV Fluids 110 / 310 100 / 100 Rocephin 1,000 MG In Water for 10 / inj. (sterile) 10 ML @ 600 mls/ hr IVP Q24H [facility] Rx#:[id number] Flagyl Premix 500 MG/100 ML 500 100 / 300 100 / 100 mg In 100 ml @ 100 mls/hr IVPB Q8HR [facility] Rx#:[id number] Oral 240 / 1020 0 / 0 Output: Urine 1200 / 2600 200 / 200 Other: Meal Dinner Percent of Meal Consumed 100% Weight 95 kg Blood Glucose* 108 Patient Weight 11/14/18 23:59 Weight 95 kg - Labs 11/14/18 06:31 11/14/18 06:31 Diabetes panel 11/13/18 11/14/18 Range/Units 08:07 06:31 Sodium 139 141 (136-145) mEq/L Potassium 3.8 4.0 (3.5-5.1) mEq/L Chloride 108 H 111 H (98-107) mEq/L Carbon Dioxide 24 25 (23-29) mEq/L BUN 6 12 (6-20) mg/dL Creatinine 0.64 0.71 (0.60-1.20) mg/dL Glucose 102 111 H (70-105) mg/dL Calcium 8.6 8.4 L (8.6-10.3) mg/dL Calcium panel 11/13/18 11/14/18 Range/Units 08:07 06:31 Calcium 8.6 8.4 L (8.6-10.3) mg/dL Pituitary panel 11/13/18 11/14/18 Range/Units 08:07 06:31 Sodium 139 141 (136-145) mEq/L Potassium 3.8 4.0 (3.5-5.1) mEq/L Chloride 108 H 111 H (98-107) mEq/L Carbon Dioxide 24 25 (23-29) mEq/L BUN 6 12 (6-20) mg/dL Creatinine 0.64 0.71 (0.60-1.20) mg/dL Glucose 102 111 H (70-105) mg/dL Calcium 8.6 8.4 L (8.6-10.3) mg/dL Adrenal panel 11/13/18 11/14/18 Range/Units 08:07 06:31 Sodium 139 141 (136-145) mEq/L Potassium 3.8 4.0 (3.5-5.1) mEq/L Chloride 108 H 111 H (98-107) mEq/L Carbon Dioxide 24 25 (23-29) mEq/L BUN 6 12 (6-20) mg/dL Creatinine 0.64 0.71 (0.60-1.20) mg/dL Glucose 102 111 H (70-105) mg/dL Calcium 8.6 8.4 L (8.6-10.3) mg/dL Consult Discharge Plan - Plan Referrals: NONE,PCP [Primary Care Provider] -
--- NOTE | 2018-11-14 11:08 | Discharge Summary ---
<ChinamarquezKinjal N - Last Filed: 11/14/18 10:56> - NOTES TO OUTPATIENT PROVIDER Notes to Outpatient Provider: 48-year-old female admitted with 1 day history of right lower quadrant abdominal pain with CT findings concerning for terminal ileitis versus appendicitis. Due to concomitant ileitis surgery was held and p aurora was treated with 3 days of IV antibiotics with improvement in her dominant pain and tenderness. Repeat CT and abdomen was performed on third day of admission and her CT findings were stable. Patient safe to discharge to home with 7 days of oral antibiotics with outpatient follow-up in 4-[address] scan at that time. Orders not resulted at time of discharge: Pending orders 11/11/18 16:45 Culture,Blood [BC] Stat Date of Encounter: 11/14/18 Time of Encounter: 10:57 - Discharge Diagnosis (1) Abdominal pain Priority: Primary Status: Acute Qualifiers: Abdominal location: right lower quadrant Qualified Code(s): R10.31 - Right lower quadrant pain (2) Sepsis Priority: Primary Status: Acute Qualifiers: Sepsis type: sepsis due to unspecified organism Qualified Code(s): A41.9 - Sepsis, unspecified organism (3) Ileitis Priority: Primary Status: Acute (4) Appendicitis Priority: Primary Status: Acute Qualifiers: Appendicitis type: unspecified Qualified Code(s): K37 - Unspecified appendicitis General Surgery Exam Initial Vital Signs Temp Pulse Resp BP Pulse Ox 99.0 F 94 18 136/86 100 11/11/18 16:34 11/11/18 16:34 11/11/18 16:34 11/11/18 16:34 11/11/18 16:34 - General physical appearance well developed, well nourished - Eyes PERRL, normal ocular movement - ENT normal pinna, normal nares - Neck trachea midline, no venous distension - Respiratory normal expansion, normal respiratory effort - Cardiovascular Cardiovascular exam: Present: RRR - Abdomen Abdomen general surgery: Present: soft, non tender - Integumentary Integumentary general surgery: Present: warm and dry - Musculoskeletal Present: normal gait - Psychiatric Psychiatric general surgery: Present: A&Ox3 - Hospital Course Hospital course: Ms. Morejon is a 48 year old female admitted with 1 day history of right lower quadrant abdominal pain with CT findings concerning for terminal ileitis versus appendicitis. Due to concomitant ileitis, surgery was held and patient was treated with 3 days of IV antibiotics with improvement in her abdominal pain and tenderness. Repeat CT and abdomen was performed on third day of admission and her CT findings were stable. Patient safe to discharge to home with 7 days of oral antibiotics with outpatient follow-up in 4-[address] scan at that time. - Time Spent with Patient Total time spent providing and/or coordinating discharge services: - Discharge Medications Prescriptions: New Amoxicillin/Clavulanate [Augmentin] 875 mg PO BIDWM 7 Days #14 tablet Home Medications: Amoxicillin/Clavulanate [Augmentin] 875 mg PO BIDWM 7 Days #14 tablet 11/14/18 [Rx] Allergies/Adverse Reactions: Allergy/AdvReac Type Severity Reaction Status Date / Time Penicillins Allergy Rash Verified 11/11/18 16:42 Sulfa (Sulfonamide Allergy Rash Verified 11/11/18 16:42 Antibiotics) Date of admission: 11/11/18 19:38 Primary care physician: PCP NONE Consults: 11/11/18 16:50 Consult to Surgery [CONS] Stat Consulting Provider: Miles Merchant Reason for Consult: Appendicitis Time Notified: 16:51 Call Completed: Yes Discharging clinician: Kinjal Leary Anticipated date of discharge: 11/14/18 Labs on day of discharge: Labs from last 24 hours 11/14/18 11/14/18 06:31 06:31 WBC 9.7 RBC 4.14 Hgb 11.5 Hct 36.6 MCV 88.4 MCH 27.8 L MCHC 31.4 L RDW 17.0 H Plt Count 222 MPV 12.5 H Immature Gran % 0.3 Seg Neutrophils % 69.1 Lymphocytes % 19.8 Monocytes % 7.9 Eosinophils % 2.1 Basophils % 0.8 Neutrophils # 6.7 Lymphocytes # 1.9 Monocytes # 0.8 Eosinophils # 0.2 Basophils # 0.1 Sodium 141 Potassium 4.0 Chloride 111 H Carbon Dioxide 25 BUN 12 Creatinine 0.71 Est GFR ( Amer) > 60 Est GFR (Non-Af Amer) > 60 BUN/Creatinine Ratio 17 Glucose 111 H Calculated Osmolality 292 Calcium 8.4 L Preliminary micro results at discharge 11/11/18 16:45 Blood Culture - Preliminary Peripheral Venipuncture Culture is incubating and being continuously monitored for growth. Final report to follow. 11/11/18 17:37 Blood Culture - Preliminary Peripheral Venipuncture Culture is incubating and being continuously monitored for growth. Final report to follow. - Impressions ITS Impressions Abdomen/Pelvis CT 11/14/18 09:00 IMPRESSION: Relatively stable findings in the right lower abdomen compared to 11/11/2018, most compatible with acute appendicitis with secondary inflammation of the adjacent ileum. The findings were sent to the Radiology Results Communication Center at 10:44 am on 11/14/2018to be communicated to a licensed caregiver. D/ / Luan Al / Luan Al Interpreting Provider: Luan Al - Patient Status Disposition: Home, Self-Care Condition: Fair Overall status at discharge: patient is progressing back to baseline - Discharge Instructions Follow Up With: Acute Care Surgery [Provider Group] - 12/19/18 (4-6 weeks follw up, web request sent please call patient) Forms: Inpatient Work/School Release <Ian Delgado - Last Filed: 11/15/18 11:42> Orders not resulted at time of discharge: Pending orders 11/11/18 16:45 Culture,Blood [BC] Stat Date of Encounter: 11/14/18 General Surgery Exam Initial Vital Signs Temp Pulse Resp BP Pulse Ox 99.0 F 94 18 136/86 100 11/11/18 16:34 11/11/18 16:34 11/11/18 16:34 11/11/18 16:34 11/11/18 16:34 - Hospital Course Hospital course: Ms. Morejon is a 48 year old female - Time Spent with Patient Total time spent providing and/or coordinating discharge services: Date of admission: 11/11/18 19:38 Primary care physician: PCP NONE Consults: 11/11/18 16:50 Consult to Surgery [CONS] Stat Consulting Provider: Miles Merchant Reason for Consult: Appendicitis Time Notified: 16:51 Call Completed: Yes Labs on day of discharge: Labs from last 24 hours 11/14/18 05:08 POC Glucose 108 H Preliminary micro results at discharge 11/11/18 16:45 Blood Culture - Preliminary Peripheral Venipuncture Culture is incubating and being continuously mo nitored for growth. Final report to follow. 11/11/18 17:37 Blood Culture - Preliminary Peripheral Venipuncture Culture is incubating and being continuously monitored for growth. Final report to follow. - Impressions ITS Impressions Abdomen/Pelvis CT 11/14/18 09:00 IMPRESSION: Relatively stable findings in the right lower abdomen compared to 11/11/2018, most compatible with acute appendicitis with secondary inflammation of the adjacent ileum. The findings were sent to the Radiology Results Communication Center at 10:44 am on 11/14/2018to be communicated to a licensed caregiver. D/ / Luan Al / Luan Al Interpreting Provider: Luan Al - Patient Status Overall status at discharge: patient is progressing back to baseline - Attending Attestation I examined this patient and my medical decision-making was reviewed with the Resident Physician. I agree with the documented findings, disposition and treatment plan as described except to the extent set forth below. I reviewed the above assessment and evaluation with the resident and agree with the above plan.
== END 2018-11-14 12:01 | disposition home or self-care (01) | DRG 872 ==
LOC: EMEROOARM 16:32 → 3ANU 19:38
PROVIDERS: ADMIT Surgery; ATTEND Surgery